=== PATIENT | female | born 1985 | race African-American/Black ===

== ENCOUNTER 2017-04-14 17:37 | Emergency (ER) | payer MEDICAID ==
[~2017-04-14] VITALS: Ht 170.2 cm; Wt 78.0 kg
[2017-04-14] MEDS ORDERED: ONDANSETRON HCL 4MG/2ML VIAL IV STA (20:30)
[2017-04-14] MEDS ORDERED: SODIUM CHLORIDE 0.9% 1,000 ML IV ONE (20:30)
[2017-04-14] MEDS ORDERED: KETOROLAC 30MG/ML VIAL IV STA (20:30)
[2017-04-14 21:02] LABS: BASOPHILS % 0.7 % (0.0-2.0); EOSINOPHILS % 1.5 % (0.0-5.0); HEMATOCRIT. 29.5 % (36.0-48.0); HEMOGLOBIN. 9.3 g/dL (12.0-16.0); LYMPHOCYTES % 20.5 % (20.0-50.0); MEAN CORPUSCULAR HEMOGLOBIN 22.9 pg (28.0-32.0); MEAN CORPUSCULAR VOLUME 72.5 fL (81.0-99.0); MEAN PLATELET VOLUME 8.7 fl (7.4-10.4); MONOCYTES % 8.8 % (2.0-8.0); NEUTROPHILS % 68.5 % (40.0-76.0); PLATELET 262 x1000/uL (130-400); RED BLOOD CELL COUNT 4.07 mill/uL (4.2-5.4)
[2017-04-14 21:04] LABS: CHLORIDE 103 mEq/L (98-107)
[2017-04-14 21:10] LABS: CARBON DIOXIDE 27 mEq/L (21-32); ETHANOL BLOOD < 10 mg/dL
[2017-04-14 21:17] LABS: HCG SCREEN NEGATIVE
[2017-04-14 22:27] LABS: CLARITY URINE CLEAR (CLEAR); COLOR URINE YELLOW (YELLOW); GLUCOSE URINE NEGATIVE (NEGATIVE); KETONES URINE NEGATIVE (NEGATIVE); LEUKOCYTE ESTERASE URINE NEGATIVE (NEGATIVE); NITRITE URINE NEGATIVE (NEGATIVE); OCCULT BLOOD URINE NEGATIVE (NEGATIVE); PH URINE 7.5 (4.5-8.0); PROTEIN URINE NEGATIVE (NEGATIVE); SPECIFIC GRAVITY URINE 1.017 (1.005-1.030)
[2017-04-14 22:37] LABS: *AMPHETAMINES SCREEN URINE NEGATIVE (NEGATIVE); *BARBITURATES SCREEN URINE NEGATIVE (NEGATIVE); *BENZODIAZEPINES SCREEN URINE NEGATIVE (NEGATIVE); *COCAINE SCREEN URINE NEGATIVE (NEGATIVE); METHADONE URINE SCREEN NEGATIVE (NEGATIVE); PHENCYCLIDINE URINE SCREEN NEGATIVE (NEGATIVE)
[2017-04-14] MEDS ORDERED: MORPHINE SULFATE 4 MG/ML CPJ (NOT FOR IM USE) IV STA (22:38)
[2017-04-14 22:42] LABS: CANNABINOID URINE SCREEN PRESUMTIVE POSITIVE (NEGATIVE); OPIATES URINE SCREEN PRESUMTIVE POSITIVE (NEGATIVE)
[2017-04-14 23:28] VITALS: BP 109/67
[2017-04-14] MEDS ORDERED: ONDANSETRON HCL 4MG/2ML VIAL IV ONE (23:45)
== END 2017-04-15 00:36 | disposition home or self-care (01) ==
LOC: ER 17:51
DX: K44.9 Diaphragmatic hernia without obstruction or gangrene (principal); K21.9 Gastro-esophageal reflux disease without esophagitis; F12.90 Cannabis use, unspecified, uncomplicated; D64.9 Anemia, unspecified; Z88.6 Allergy status to analgesic agent
CPT/HCPCS: 36415; 74176; 80053; 80305; 81003; 83690; 84703; 85025; 96361; 96374; 96375; 96376; 99285; C1893; G0482; J1885; J2270; J2405; J7030; Z7610

== ENCOUNTER 2017-10-31 12:20 | Emergency (ER) | payer MEDICAID ==
[~2017-10-31] VITALS: Ht 162.6 cm; Wt 50.0 kg
[~2017-10-31 12:20] MED LIST: ALBU18HF2 IH
[2017-10-31] MEDS ORDERED: ONDANSETRON HCL 4MG/2ML VIAL IV ONE ×2 (13:30→16:15)
[2017-10-31] MEDS ORDERED: SODIUM CHLORIDE 0.9% 1,000 ML IV ONE (13:30)
[2017-10-31] MEDS ORDERED: KETOROLAC 30MG/ML VIAL IV ONE (13:30)
[2017-10-31 14:59] LABS: BASOPHILS % 0.2 % (0.0-2.0); HEMATOCRIT. 30.9 % (36.0-48.0); HEMOGLOBIN. 9.7 g/dL (12.0-16.0); LYMPHOCYTES % 8.6 % (20.0-50.0); MEAN CORPUSCULAR HEMOGLOBIN 22.7 pg (28.0-32.0); MEAN CORPUSCULAR VOLUME 72.2 fL (81.0-99.0); MEAN PLATELET VOLUME 8.9 fl (7.4-10.4); MONOCYTES % 11.4 % (2.0-8.0); NEUTROPHILS % 79.8 % (40.0-76.0); PLATELET 238 x1000/uL (130-400); RED BLOOD CELL COUNT 4.28 mill/uL (4.2-5.4); RED CELL DISTRIBUTION WIDTH 17.8 % (11.6-14.6)
[2017-10-31 15:00] LABS: CHLORIDE 103 mEq/L (98-107)
[2017-10-31 15:05] LABS: CARBON DIOXIDE 22 mEq/L (21-32)
[2017-10-31] MEDS ORDERED: ACETAMINOPHEN 325MG TABLET PO ONE (17:15)
[2017-10-31 18:30] VITALS: BP 99/50
== END 2017-10-31 18:56 | disposition home or self-care (01) ==
LOC: ER 14:02
DX: J11.1 Influenza due to unidentified influenza virus with other respiratory manifestations (principal); D64.9 Anemia, unspecified; J45.909 Unspecified asthma, uncomplicated; R11.2 Nausea with vomiting, unspecified; D25.9 Leiomyoma of uterus, unspecified; Z88.6 Allergy status to analgesic agent
CPT/HCPCS: 36415; 80048; 81025; 85025; 87804; 96361; 96374; 96375; 96376; 99285; J1885; J2405; J7030; Z7610

== ENCOUNTER 2018-01-04 12:36 | Emergency (ER) | payer MEDICAID, OTHER ==
[~2018-01-04] VITALS: Ht 167.6 cm; Wt 65.0 kg
[2018-01-04] MEDS ORDERED: SODIUM CHLORIDE 0.9% 1,000 ML IV ONE (14:45)
[2018-01-04] MEDS ORDERED: ONDANSETRON HCL 4MG/2ML VIAL IV ONE (14:45)
[2018-01-04 15:17] LABS: CLARITY URINE CLEAR (CLEAR); COLOR URINE YELLOW (YELLOW); KETONES URINE TRACE (NEGATIVE); LEUKOCYTE ESTERASE URINE NEGATIVE (NEGATIVE); NITRITE URINE NEGATIVE (NEGATIVE); OCCULT BLOOD URINE 3+ (NEGATIVE); PROTEIN URINE 1+ (NEGATIVE); SPECIFIC GRAVITY URINE 1.024 (1.005-1.030)
[2018-01-04 15:27] LABS: *AMPHETAMINES SCREEN URINE NEGATIVE (NEGATIVE); *BARBITURATES SCREEN URINE NEGATIVE (NEGATIVE); *BENZODIAZEPINES SCREEN URINE NEGATIVE (NEGATIVE); *COCAINE SCREEN URINE NEGATIVE (NEGATIVE); METHADONE URINE SCREEN NEGATIVE (NEGATIVE); OPIATES URINE SCREEN NEGATIVE (NEGATIVE); PHENCYCLIDINE URINE SCREEN NEGATIVE (NEGATIVE)
[2018-01-04 15:29] LABS: CANNABINOID URINE SCREEN PRESUMTIVE POSITIVE (NEGATIVE)
[2018-01-04] MEDS ORDERED: MORPHINE SULFATE 2 MG/ML CPJ (NOT FOR IM USE) IV ONE (15:45)
[2018-01-04] MEDS ORDERED: MORPHINE SULFATE 4 MG/ML CPJ (NOT FOR IM USE) IV ONE ×2 (16:00→18:30)
[2018-01-04] MEDS ORDERED: METOCLOPRAMIDE HCL 10MG/2ML VIAL IV ONE (18:30)
[2018-01-04 19:13] LABS: HEMATOCRIT. 25.2 % (36.0-48.0); MEAN CORPUSCULAR HEMOGLOBIN 22.9 pg (28.0-32.0); MEAN CORPUSCULAR VOLUME 72.3 fL (81.0-99.0); MEAN PLATELET VOLUME 8.3 fl (7.4-10.4); PLATELET 269 x1000/uL (130-400); RED BLOOD CELL COUNT 3.48 mill/uL (4.2-5.4); RED CELL DISTRIBUTION WIDTH 17.9 % (11.6-14.6)
[2018-01-04 19:19] LABS: INR 1.1; PROTHROMBIN TIME 11.4 sec (9.4-11.6)
[2018-01-04 19:22] LABS: CHLORIDE 111 mEq/L (98-107)
[2018-01-04 19:26] LABS: PLATELET ESTIMATE NORMAL
[2018-01-04 19:45] LABS: HEPATITIS B SURFACE ANTIGEN NEGATIVE
[2018-01-04] MEDS ORDERED: METOCLOPRAMIDE HCL 10MG/2ML VIAL IV SCH (20:00)
[2018-01-04 20:13] LABS: HEPATITIS B CORE AB IGM NEGATIVE
[2018-01-04 20:15] LABS: HEPATITIS A AB IGM NEGATIVE (NEGATIVE)
[2018-01-04 20:58] VITALS: BP 108/71
== END 2018-01-04 20:59 | disposition home or self-care (01) ==
LOC: ER 12:48
DX: F12.188 Cannabis abuse with other cannabis-induced disorder (principal); R11.2 Nausea with vomiting, unspecified; F12.180 Cannabis abuse with cannabis-induced anxiety disorder; N17.0 Acute kidney failure with tubular necrosis; E86.0 Dehydration; R31.9 Hematuria, unspecified; D72.818 Other decreased white blood cell count; E87.1 Hypo-osmolality and hyponatremia; R73.9 Hyperglycemia, unspecified; K59.00 Constipation, unspecified; N83.202 Unspecified ovarian cyst, left side; R10.32 Left lower quadrant pain; D50.9 Iron deficiency anemia, unspecified; G40.909 Epilepsy, unspecified, not intractable, without status epilepticus; D72.810 Lymphocytopenia; J45.909 Unspecified asthma, uncomplicated
CPT/HCPCS: 36415; 71045; 74176; 80053; 80305; 81003; 81025; 83036; 83880; 84484; 85025; 85610; 93005; 96361; 96374; 96375; 96376; 99285; J2270; J2405; J2765; J7030; Z7610; 86705; 86709; 86803; 87340